=== PATIENT | male | born 1965 | race Caucasian/White ===

== ENCOUNTER 2017-03-23 11:37 | Emergency (ER) | payer MEDICAID ==
[2017-03-23 12:02] VITALS: BP 114/71
--- NOTE | 2017-03-23 12:24 | UC ---
Dental HPI - HPI Summary HPI Summary: He had a tongue piercing about a weak ago. it is still painful. no swelling or drainage. there is also right lower dental pain with eating. - History of Current Complaint Chief Complaint: UCDentalProblem Stated Complaint: ORAL COMPLAINT Time Seen by Provider: 03/23/17 11:59 Hx Obtained From: Patient Onset/Duration: Gradual Onset, Lasting Days Severity: Moderate Aggravating: Heat, Chewing Alleviating: Nothing - Allergies/Home Medications Allergies/Adverse Reactions: Allergies Allergy/AdvReac Type Severity Reaction Status Date / Time Cyclobenzaprine Allergy Intermediate ITICHING Verified 03/23/17 12:02 [From Flexeril] Morphine Allergy Intermediate Rash And Verified 03/23/17 12:02 Itching Gabapentin Allergy Itching Verified 03/23/17 12:02 Tetanus Toxoids Allergy Swelling Verified 03/23/17 12:02 Home Medications: Home Medications traZODone TAB* [Desyrel TAB*] 50 mg PO BEDTIME 03/23/17 [History Confirmed 03/23] PMH/Surg Hx/FS Hx/Imm Hx Previously Healthy: Yes - Surgical History Surgical History: None - Family History Known Family History: Positive: Hypertension - Social History Alcohol Use: None Substance Use Type: None, Prescribed Smoking Status (MU): Heavy Every Day Tobacco Smoker Type: Cigarettes Amount Used/How Often: 2 PPD Have You Smoked in the Last Year: Yes Household Exposure Type: Cigarettes Review of Systems All Other Systems Reviewed And Are Negative: Yes Physical Exam Triage Information Reviewed: Yes Appearance: Well-Appearing, No Pain Distress, Well-Nourished Vital Signs: Initial Vital Signs Temp 98.6 F 03/23/17 11:56 Pulse 72 03/23/17 11:56 Resp 16 03/23/17 11:56 BP 114/71 03/23/17 11:56 Pulse Ox 99 03/23/17 11:56 Vital Signs Reviewed: Yes Eye Exam: Normal ENT Exam: Other - piercing does not show signs of swelling or redness. ENT: Negative: Nasal congestion Dental: Positive: Percussion Tenderness @ - right lower post molar. there are fillings but no fracture, drainage or swelling. Neck exam: Normal Neck: Positive: Supple, Nontender, No Lymphadenopathy Respiratory Exam: Normal Cardiovascular Exam: Normal Abdominal Exam: Normal Musculoskeletal Exam: Normal Musculoskeletal: Positive: Strength Intact Neurological Exam: Normal Neurological: Positive: Alert Psychological Exam: Normal Skin Exam: Normal Dental Complaint Course/Dx - Differential Dx/Diagnosis Provider Diagnoses: tongue piercing is tender but no signs of infection. There is obvious tenderness without swelling of the right lower molars. He agrees to f /u with dentist. Discharge - Discharge Plan Condition: Good Disposition: HOME Prescriptions: Amoxicillin CAP* [Amoxicillin 500 MG CAP*] 500 mg PO TID #21 cap Patient Education Materials: Toothache (ED) Referrals: Bernice Davalos PA [Primary Care Provider] - Additional Instructions: Please see a dentist regarding your dental pain.
== END 2017-03-23 12:22 | disposition home or self-care (01) ==
LOC: UCCORT 11:37
DX: K08.89 Other specified disorders of teeth and supporting structures (principal); F17.210 Nicotine dependence, cigarettes, uncomplicated
CPT/HCPCS: 99212; G0463